=== PATIENT | male | born 1970 ===

== ENCOUNTER 2017-03-04 10:53 | Emergency (ER) | payer SELFPAY ==
[2017-03-04 11:00] VITALS: TEMP 98.4; O2SAT 99
--- NOTE | 2017-03-04 11:52 | ED PDOC ---
Arrival/HPI - General Chief Complaint: Lower Extremity Problem/Injury Time Seen by Provider: 03/04/17 11:30 Historian: Patient, Spouse - History of Present Illness Narrative History of Present Illness (Text): 03/04/17 11:51 This 46 yo male with pmh gout presents to this ED c/o left knee pain and swelling since last night. Patient stated knee pain is caused by gout, and he would like to get medication for gout. He denies surgical procedure to his knees, trauma, fall, recent infection, weakness, paresthesias, leg swelling, hip pain, ankle pain, or fever. Patient also requested a "shot" of steroid medication for his inflammation. Time/Duration: Other (see hpi) Context: Home Past Medical History - Provider Review Nursing Documentation Reviewed: Yes - Cardiac Hx Cardiac Disorders: No - Pulmonary Hx Respiratory Disorders: No - Neurological Hx Neurological Disorder: No - HEENT Hx HEENT Disorder: No - Endocrine/Metabolic Hx Endocrine Disorders: No - Hematological/Oncological Hx Blood Disorders: No - Integumentary Hx Dermatological Disorder: No - Musculoskeletal/Rheumatological Hx Musculoskeletal Disorders: Yes Hx Gout: Yes - Gastrointestinal Hx Gastrointestinal Disorders: No - Genitourinary/Gynecological Hx Genitourinary Disorders: No - Psychiatric Hx Psychophysiologic Disorder: No Hx Substance Use: No (DENIED) Family/Social History - Physician Review Nursing Documentation Reviewed: Yes Family/Social History: Other (noncontributory) Smoking Status: Never Smoked Hx Alcohol Use: No Hx Substance Use: No (DENIED) Allergies/Home Meds Allergies/Adverse Reactions: Allergies No Known Allergies Allergy (Verified 03/04/17 10:55) Review of Systems - Review of Systems Constitutional: Normal Eyes: Normal ENT: Normal Respiratory: Normal Cardiovascular: Normal Gastrointestinal: Normal Genitourinary Male: Normal Musculoskeletal: Arthralgias, Joint Swelling Skin: Normal Neurological: Normal Endocrine: Normal Hemo/Lymphatic: Normal Psychiatric: Normal Physical Exam Vital Signs Temp Pulse Resp BP Pulse Ox 03/04/17 12:28 65 18 122/75 99 03/04/17 10:55 98.4 F 62 16 124/81 99 Temperature: Afebrile Blood Pressure: Normal Pulse: Regular Respiratory Rate: Normal Appearance: Positive for: Well-Appearing, Non-Toxic, Comfortable Pain Distress: None Mental Status: Positive for: Alert and Oriented X 3 - Systems Exam Head: Present: Atraumatic, Normocephalic Pupils: Present: PERRL Extroacular Muscles: Present: EOMI Conjunctiva: Present: Normal Mouth: Present: Moist Mucous Membranes Lower Extremity: Present: NORMAL PULSES, Tenderness, Swelling, Deformity (due to left knee ), Temperature Abnormalties, Neurovascularly Intact, Capillary Refill < 2 s, Other (No septic knee joint, no erythema, or ecchymosis. No skin abscess/rash). No: Edema, CALF TENDERNESS, Normal ROM (due to left knee pain), Erythema Neurological: Present: GCS=15, CN II-XII Intact, Speech Normal Skin: Present: Warm, Dry, Normal Color. No: Rashes Psychiatric: Present: Alert, Oriented x 3 Medical Decision Making ED Course and Treatment: 03/04/17 13:00 Re-evaluation. Patient feels better. Discussed results and plan with patient who expresses understanding. All questions answered and there is agreement with the plan to discharge home with instructions. Patient stable for discharge. Return if symptoms persist or worsen. Crutches, and knee immobilizer were ordered. I reviewed the risk of using Steroid including Decadron, which includes AVN, osteoporosis, glaucoma, DM, infection. Patient understood risk and patient agrees with the use of these medication. Re-evaluation Time: 13:00 Reassessment Condition: Re-examined, Improved - Medication Orders Current Medication Orders: Discontinued Medications Colchicine (Colocrys) 1.2 mg PO STAT STA Stop: 03/04/17 11:50 Last Admin: 03/04/17 12:10 Dose: 1.2 mg Colchicine (Colocrys) 0.6 mg PO ONCE ONE Stop: 03/04/17 12:51 Last Admin: 03/04/17 12:56 Dose: 0.6 mg Dexamethasone (Decadron Inj) 10 mg IM STAT STA Stop: 03/04/17 11:49 Last Admin: 03/04/17 12:10 Dose: 10 mg IM Administration Charges Document 03/04/17 12:10 SF (Rec: 03/04/17 12:10 SF [facility] [id number]) Injection Site MAR Injection Site Left Deltoid Charges for Administration # of IM Administrations 1 Disposition/Present on Arrival - Present on Arrival Any Indicators Present on Arrival: No History of DVT/PE: No History of Uncontrolled Diabetes: No Urinary Catheter: No History of Decub. Ulcer: No History Surgical Site Infection Following: None - Disposition Have Diagnosis and Disposition been Completed?: Yes Diagnosis: Gout attack, Knee pain Disposition: HOME/ ROUTINE Disposition Time: 13:00 Patient Plan: Discharge Condition: IMPROVED Discharge Instructions (ExitCare): Gout (ED) Additional Instructions: Call private doctor for follow up visit in 1-2 days. Take medication as instructed. Return to emergency if symptoms worsen. Take medication with food. Keep knee elevated, rest, ice, crutches for at least 5 days Prescriptions: Indomethacin [Indocin] 50 mg PO TID PRN #30 cap PRN Reason: Pain, Severe (8-10) Referrals: [facility], [Non-Staff] - Follow up with primary [facility] [Outside] - Follow up with primary [facility] [Outside] - Follow up with primary Forms: [employer] ([employer])
[2017-03-04 12:29] VITALS: BP 122/75; PULSE 65; RESP 18
== END 2017-03-04 13:05 | disposition home or self-care (01) ==
LOC: ED 10:53
DX: M10.9 Gout, unspecified (principal); M25.562 Pain in left knee
CPT/HCPCS: 29530; 96372; 99285; J1100